=== PATIENT | female | born 1970 | race African-American/Black ===

== ENCOUNTER 2016-09-11 06:18 | Emergency (ER) ==
--- NOTE | 2016-09-11 07:01 | PROVIDER DOCUMENTATION ---
HPI-Headache - General Chief Complaint: Headache Stated Complaint: HEADACHE Time Seen by Provider: 09/11/16 06:45 Source: patient Allergies/Adverse Reactions: Patient Allergies Allergy/AdvReac Type Severity Reaction Status Date / Time No Known Allergies Allergy Verified 08/07/16 17:18 Home Medications: Home Medication List Medication Instructions Recorded Confirmed Last Taken Type No Home Medications 09/11/16 09/11/16 Unknown History - History of Present Illness-Headache Nature of Presenting Problem: Pt has been having freg frontal H/A, facial pain since Jun. associated wwith nosebleeds. Pain is a dull pressure, says nose and ears feel full, but no nasal congestion. Says eyes hurt, kyree with movement. light. Has nausea with H/A. She was seen here in Jul for this, dx with sinus infection, placed on abx, nasal spray. H/As began again Saturday. They are intermittant. Had to call in off @ work yest due to H/A, nosebleed. Feels lightheaded and weak with H/A. No fever. Headache Location: reports: frontal Quality of Pain: reports: aching, pressure Onset/Duration: reports: 4 days ago Timing: reports: intermittent Headache Context: reports: nothing Headache History: reports: other (see HPI) Any recent trauma/injury?: reports: none Headache severity at the maximum: severe Headache Exacerbated by:: reports: light Modifying Factors: improves with: nothing Associated Symptoms: reports: headache, dizziness, nausea, weakness. denies: fever/chills, numbness in legs/feet, paresthesia, tingling in legs/feet, vomiting Similar Symptoms Previously?: Yes Recently seen or treated by another doctor?: No Review of Systems - Adult - REVIEW OF SYSTEMS - ADULT Constitutional: reports: no symptoms reported Eyes: reports: see HPI Ears, Nose, Mouth & Throat: reports: see HPI Cardiovascular: reports: no symptoms reported Respiratory: reports: no symptoms reported Gastrointestinal: reports: see HPI Integumentary: reports: no symptoms reported Neurological: reports: see HPI Psychiatric: reports: no symptoms reported Endocrine: reports: no symptoms reported Hematologic/Lymphatic: reports: see HPI Allergic/Immunologic: reports: no symptoms reported Past History - Adult - PAST MEDICAL HISTORY-ADULT Review of Records: reports: Medications Reviewed Major Childhood Illnesses: reports: denies history Cardiovascular: reports: denies history Respiratory: reports: denies history Gastrointestinal: reports: pancreatitis Obstetrical/Gynecological: reports: denies history Genitourinary: reports: denies history Musculoskeletal: reports: denies history Neurological: reports: denies history Psychiatric: reports: bipolar Endocrine/Immune: reports: denies history Other Conditions: reports: denies history - PRIOR SURGERIES/PROCEDURES Surgical/Procedure History: reports: BTL - FAMILY HISTORY Family History: reviewed, not pertinent - SOCIAL HISTORY Smoking: cigarettes Provider spent 3-5 mins advising pt. on dangers of tobacco.: Discussed manners to quit use, and f/u contacts for add'l counseling. Physical Exam- Neurological - Physical Exam-Neuro Initial Vital Signs Reviewed: Yes General Appearance: appears well, alert, no apparent distress Eye Exam: bilateral eye: normal inspection, PERRL, EOMI HENMT: normocephalic/atraumatic, moist mucous membranes, normal ENT inspection, pharynx normal, frontal tenderness, maxillary tenderness, other (ethmoid sinuses also tender to percussion) Head Injury: no evidence of injury Neck: non-tender, full range of motion, supple, normal inspection Respiratory: lungs clear, normal breath sounds, no respiratory distress Cardiovascular: regular rate, rhythm, no gallop, no murmur Abdominal Exam: non tender, soft Extremity: normal range of motion, non-tender, 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 Exam: normal hearing, normal speech, PERRL, other (CN II-XII intact) Motor/Sensory: no motor deficit, no sensory deficit Neurologic: no motor/sensory deficits, other (CN II-XII intact) Integumentary: normal color, normal turgor, warm/dry Psych/Mental Status: normal mood/affect, normal thought content, normal thought process, oriented x 3 - Glascow Coma Scale Best Eye Response: (4) open spontaneously Best Verbal Response: (5) oriented Best Motor Response: (6) obeys commands Progress - PLAN OF CARE/RESULTS Progress/Plan/Lab Results: Vital Signs Temp Pulse Resp BP Pulse Ox 09/11/16 06:27 98.2 F 90 18 124/80 100 No Known Allergies Allergy (Verified 08/07/16 17:18) No Home Medications 09/11/16 Orders Category Date Time Status HEAD W/O CONTRAST [CT] Stat Exams 09/11/16 06:53 Completed CBC WITH ELECTRONIC DIFF [HEME] Stat Lab 09/11/16 07:11 Ordered PR[address]IME WITH INR PL [COAG] Stat Lab 09/11/16 06:55 Ordered PTT [COAG] Stat Lab 09/11/16 06:55 Ordered 0.9% Sodium Chloride Inj [Ns] 1,000 ml Med 09/11/16 07:05 Discontinued IV 999 mls/hr Dexamethasone [Decadron] Med 09/11/16 07:05 Discontinued 10 mg IV NOW ONE Diphenhydramine [Benadryl] Med 09/11/16 07:05 Discontinued 25 mg IV NOW ONE Metoclopramide [Reglan] Med 09/11/16 07:05 Discontinued 10 mg IV NOW ONE Laboratory Tests 09/11/16 09/11/16 08:20 08:20 WBC 5.49 RBC 4.21 Hgb 12.6 Hct 37.6 MCV 89.3 MCH 29.9 MCHC 33.5 RDW Std Deviation 13.0 Plt Count 317 MPV 8.9 Immature Gran % (Auto) 0.0 Neut % (Auto) 57.9 Lymph % (Auto) 28.8 [place] % (Auto) 11.7 H Eos % (Auto) 0.9 Baso % (Auto) 0.7 Immature Gran # (Auto) 0.00 Neut # (Auto) 3.18 Lymph # (Auto) 1.58 [place] # (Auto) 0.64 H Eos # (Auto) 0.05 Baso # (Auto) 0.04 PT 14.4 INR 1.09 APTT (Factor Assay) 32.5 - REASSESSMENT Reassessment #1 Time Reassessed: 08:40 Status: improving (H/A gone. Do lightheadness with stand) - CT/MRI 1 CT Study: Head (no intracranial abnormality, no sinus opacification) Departure - Departure Time of Disposition Order: 08:43 DIAGNOSIS: Migraine headache Qualifiers: Migraine type: without aura Disposition: HOME 01 Certified Medical Emergency: Emergent Condition: Good Additional Instructions: ED Follow Up Instructions: You have been treated by a care provider in the Emergency Department. These instructions are being provided to you so you can have an understanding of how to care for yourself upon discharge. Upon discharge from the Emergency Department, you are responsible for making arrangements for follow-up care by a physician of your choice. Take all prescribed medications as directed. Return to the Emergency Department immediately for any new or worsening symptoms. You may call the Physician Referral phone number at [phone] to obtain a list of Physicians who are taking new patients. Instructions: Migraine Headache, [id number]
[2016-09-11] MEDS ORDERED: BENADRYL IV ONE (07:05)
[2016-09-11] MEDS ORDERED: NS 1,000 ML IV ONE (07:05)
[2016-09-11] MEDS ORDERED: REGLAN IV ONE (07:05)
[2016-09-11] MEDS ORDERED: DECADRON IV ONE (07:05)
--- NOTE | 2016-09-11 08:02 | Diag Imaging Result Document ---
PROCEDURE NAME: HEAD W/O CONTRAST - 09/11/2016 CT BRAIN WITHOUT CONTRAST. DOSE REDUCTION PROTOCOL: COMPARISON: 04/06/2012. FINDINGS: No parenchymal hemorrhage. No epidural or subdural hematoma. No subarachnoid hemorrhage. No mass identified on this noncontrasted exam. No hydrocephalus. No sinus opacification. IMPRESSION: No hemorrhage. Negative brain CT without contrast. A preliminary report was given at 7:47 a.m.
[2016-09-11 08:23] LABS: MANUAL DIFF NEEDED? NO
[2016-09-11 08:28] LABS: BASO% 0.7 % (0.0-0.8); EOS# 0.05 X1000 (0.0-0.7); EOS% 0.9 % (0.0-10.0); HEMATOCRIT 37.6 % (37.0-47.0); HEMOGLOBIN 12.6 g/dL (12.0-16.0); LYMPH# 1.58 X1000 (1.2-3.4); LYMPH% 28.8 % (20.5-51.1); MCH 29.9 PG (27-31); MCHC 33.5 g/dL (33-37); MCV 89.3 FL (81-99); MONO# 0.64 X1000 (0.11-0.59); MONO% 11.7 % (1.7-9.3); MPV 8.9 FL (7.4-10.4); NEUT% 57.9 % (42.2-75.2); PLT 317 X1000 (130-400); RBC 4.21 XMIL (4.2-5.4)
[2016-09-11 08:37] LABS: INR 1.09 (0.86-1.15); PROTIME 14.4 Seconds (12.1-15.5)
[2016-09-11 08:38] LABS: PTT PL 32.5 Seconds (22.6-43.9)
[2016-09-11 09:11] VITALS: BP 131/087
== END 2016-09-11 09:27 | disposition home or self-care (01) ==
LOC: P.ED 06:18
DX: G43.909 Migraine, unspecified, not intractable, without status migrainosus (principal); R51 Headache; R04.0 Epistaxis; H57.13 Ocular pain, bilateral; R11.0 Nausea; R42 Dizziness and giddiness; R53.1 Weakness; J34.89 Other specified disorders of nose and nasal sinuses; F17.210 Nicotine dependence, cigarettes, uncomplicated; Z71.6 Tobacco abuse counseling
CPT/HCPCS: 36415; 70450; 85025; 85610; 85730; J1200; J2765; J7030